=== PATIENT | male | born 1965 | race Caucasian/White ===

== ENCOUNTER 2020-11-08 08:16 | Outpatient (RCR) | payer OTHER, SELFPAY ==
--- NOTE | 2020-11-08 08:59 | PTOPEVAL ---
Thank you for referring Rj Turner to [facility].? The patient is scheduled to be seen for therapy? __3__x/week for 12 visits. Please review, sign, date and return this plan of care SUSIE. I agree with and certify that the following plan of care is medically necessary. Referring Physician Date Admitting Provider: Attending Provider: Ramy Newsome, Referring Provider: *PT Outpatient Evaluation Start: 11/08/20 08:01 Freq: Status: Active Protocol: Document 11/08/20 08:12 AVELINO (Rec: 11/08/20 08:59 AVELINO [email or web address]) Therapy Assessment Status Assessment Status Assessment Status Evaluation Evaluation Information Problem Diagnosis left TKA Onset 10-25-20 Subjective Information Pt. reports that he underwent Query Text:As Reported By Patient/ left TKA on 10/25/20. He Family reports that he has been participating in for therapy. He states that he has been doing a daily exerise program. He reports that he is having trouble with sleep because he is avoiding sleeping on his side. He reports that he is currently using a cane. He has not returned to driving. 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 He reports that his goal is to return to walking normal. Pain Assessment Timing of Pain Assessment Timing of Pain Assessment Pre-Treatment Pain Scale Pain Scale Used Numeric (1 - 10) Self Report Pain Assessment Left Knee(s) Reported Pain Level 1 Lowest Pain Intensity 1 Greatest Pain Intensity 4 Pain Aggravating Factors Exercise/Activity,Walking Pain Score Pain Score 1: Self Report Interventions Used Interventions Used By Clinicians Activity or ADL's,Compression Pump,Exercise Lower Extremity Range of Motion General Lower Extremity Range of Motion Gross Lower Extremity Range of Motion Pt. presents to the clinic Comments with 2-102 degrees of left knee AROM. Lower Extremity Muscle Strength Testing General Lower Extremity Strength Gross Lower Extremity Strength -left hip flexion 4/5 -left hip abduction 3+/5 -left knee flexion 3+/5 -left knee extension 3+/5 -left ankle dorsiflexion 5/5 Extremity Circumference Assess
--- NOTE | 2020-11-09 10:20 | PCPTNOTE ---
On 11/09/20, the student, [ Delfina Duvall, [facility] provided care and completed [employer] documentation on this patient. I have reviewed the student's documentation and agree with the findings.
--- NOTE | 2020-11-23 13:10 | PCPTNOTE ---
Mr. Turner has been seen for a total of 8 outpatient treatments with 100% compliancy. Pt is 4 weeks post op with left range of motion of 2-115 degrees this date. Patient has been instructed in HEP along with performing therapeutic ex of -heel prop x 10 minutes -scar massage x 5 min -squats x 20 -6 step ups x 15 on left -heel slides x 20 with 10 second with belt -PROM knee flex x 5 min -SAQ x 20 -quad sets x 20 holds -SLR 1x20 -gastroc incline board x 2 min -heel/toe raises x 20 -standing hip abd 2x10 ea casa -NuStep level 4 for knee flexion x 10 minutes -Vasopneumatic compression post treatment x 15 min for pain and swelling post treatment. Thank you for this referral. Any questions or concerns please contact our office. Gabrielle Salinas MANAGER LEADERSHIP DEVELOPMENT
--- NOTE | 2020-12-02 09:08 | PTOPEVAL ---
Thank you for referring Rj Turner to [facility].? The patient is scheduled to be seen for therapy? ____x/week for ___ weeks. Please review, sign, date and return this plan of care SUSIE. I agree with and certify that the following plan of care is medically necessary. Referring Physician Date Admitting Provider: Attending Provider: Ramy Newsome, Referring Provider: *PT Outpatient Evaluation Start: 11/08/20 08:01 Freq: Status: Active Protocol: Document 12/02/20 08:11 [facility] (Rec: 12/02/20 09:07 [facility] [email or web address]) Evaluation Information Problem Diagnosis left TKA Onset 10-25-20 Additional Evaluation Detail LEFS = 20% functionally declined Subjective Information patient reports he feels good Query Text:As Reported By Patient/ this date. he reports he was Family a bit tight after his last therapy visit. he reports he is loosened back up now. patient reports he is confident with his exercises, and ready to DC skilled PT this date. Pain Assessment Timing of Pain Assessment Timing of Pain Assessment Assessment Pain Scale Pain Scale Used Numeric (1 - 10) Self Report Pain Assessment Left Knee(s) Reported Pain Level 0 Greatest Pain Intensity 3 Pain Score Pain Score 0: Self Report Interventions Used Interventions Used By Clinicians Activity or ADL's,Compression Pump,Education,Exercise Lower Extremity Range of Motion General Lower Extremity Range of Motion Gross Lower Extremity Range of Motion arom L knee extension = 0 Comments degrees arom L knee flexion = 125 degrees Lower Extremity Muscle Strength Testing General Lower Extremity Strength Gross Lower Extremity Strength L hip flex 4+/5 L knee strength 5/5 overall Muscle Length Testing Muscle Length Testing Left Hamstring Length 45 Query Text:(90 - 90 Position) Gait Assessment Gait Assessment Additional Ambulation Comments patient ambulates with mild antalgia favoring the L LE still. however, he reports he did walk with a limp for nearly 8 years prior to his surgery. he ambulates with step through bilateral mechanics and his gait improves with further ambulation distance domenic
== END 2020-12-02 11:24 | disposition home or self-care (01) ==
LOC: CHSPT 08:16
PROVIDERS: Visit Provider Orthopaedic Surgery Adult Reconstructive Orthopaedic Surgery
DX: Z96.652 Presence of left artificial knee joint (principal); G89.29 Other chronic pain
CPT/HCPCS: 97016; 97110; 97161; 97530

== ENCOUNTER 2022-03-20 07:52 | Outpatient (RCR) | payer OTHER, SELFPAY ==
--- NOTE | 2022-03-20 07:56 | PTOPEVAL1 ---
Assessment and note entered by Ivis Hernandez DPT Evaluation Information Assessment Status Evaluation Diagnosis L knee pain Onset 10/25/2020 Subjective Information Pt reports that he had a knee replacement for his L knee on 10/25/2020 due to being bone on bone in his left knee. Pt reports that his knee is better than right after surgery, but is still painful. He has the most difficulty with lateral movements, bending, and as the day goes on. Pt reports some pain with sleeping due to sleeping with his knee bent. Pt came into our clinic post-op last year and was doing well but after returning to work he feels that his pain has plateaued and returned since working more. He got an Xray performed yesterday and his MD feels knee is still structurally sound but just might have decreased strength. He doesn't note much swelling any more. He denies numbness or tingling but reports some decreased sensation. Pt reports pain along his joint line and posterior knee. Pain waxes and wanes especially with activity. He reports that his pain does not keep him from doing things he likes to do, but that he is more careful. He does not have a follow-up scheduled with his MD, but is supposed to call after a round of PT. Reported Pain Level Pain Score 5: Self Report Assessment PT Clinical Summary Pt presents to physical therapy with L knee pain and demonstrates decreased strength, decreased ROM and mobility, and joint edema. His current deficits make it more challenging for him to bend his knee and walk as needed for his job and recreational activities. He will benefit from skilled PT to facilitate symptom relief, improve the aforementioned impairments, and return to functional and recreational activities. Plan of Care Interventions Electrical Stimulation,Gait Training,Hot Pack/Cold Pack,Manual Therapy,Neuro Re-education,Patient/ Caregiver Educati,Therapeutic Activities, Therapeutic Exercise PT Services Indicated Yes Treatment Frequency and 2x week for 4 weeks Duration These treatments will address the objective and functional deficits as defined above. The patient will be advanced safely and appropriately in order for the patient to progress towards his/her prior level of function. Additional exercises will be introduced and as well as a comprehensive home exercise program upon discharge, if needed, ?to ensure carryover of functional gains achieved in the clinic. This
--- NOTE | 2022-04-12 08:53 | PTOPDC ---
Assessment and note entered by Ivis Hernandez DPT Evaluation Information Assessment Status Discharge Diagnosis L knee pain Onset 10/25/2020 Subjective Information Pt reports that knee pain is low but still present . His pain is definitely lower when he does have pain, but he continues to notice it when making lateral motions. He notes it still gets sore when bending and kneeling on it, especially for long periods of time. Reported Pain Level Pain Score 2: Self Report Assessment PT Clinical Summary Pt presents to PT with significant improvements in pain, strength, ROM, swelling, and gait pattern since his initial evaluation. While he still demonstrates some discomfort with lateral motions and with continuous bending, he was provided with an updated HEP to further improve these symptoms as he prepares to return to work next week. He is to be discharged from skilled PT at this time to his independent HEP and is to call or follow-up as needed for his POC going forward. Plan of Care PT Services Indicated No
== END 2022-04-12 11:12 | disposition home or self-care (01) ==
LOC: CHSPT 07:52
PROVIDERS: Visit Provider Orthopaedic Surgery Adult Reconstructive Orthopaedic Surgery
DX: M25.562 Pain in left knee (principal)
CPT/HCPCS: 97110; 97112; 97140; 97161; 97530

== ENCOUNTER 2024-07-23 11:49 | Outpatient (CLI) | payer OTHER, SELFPAY ==
--- OUTSIDE RECORDS SUMMARY | 2024-07-23 13:37 | XMS_ITS | Clinical Summary ---
Author Organization [facility] Address [address] [place] [address] Care Team Providers Care Oscillograph Technician Name Role Phone Bartolome Grimes MD Unavailable [phone] Eryn Rowe NP Primary Care Provider [phone] Allergies No known active allergies Medications pravastatin (PRAVACHOL) 20 MG tabletIndicatio ns:Hyperlipidem ia, mixed Take 1 tablet (20 mg total) by mouth nightly at bedtime. 90 tablet 3 09/27/19 24 Active metoprolol succinate ER (TOPROL-XL) 25 MG 24 hr tabletIndicatio ns:SVT (supraventricul ar tachycardia) (HHS/HCC),Prima ry hypertension Take 1 tablet (25 mg total) by mouth daily. 90 tablet 3 09/27/19 24 Active Additional Information Patient not taking.Reported on 07/14/2024 ketoconazole (NIZORAL) 2 % cream Apply topically daily. 07/03/19 24 025 Discontinued( Pt. elected to discontinue med) terbinafine (LAMISIL) 250 MG tabletIndicatio ns:Onychomycosi s Take 1 tablet (250 mg total) by mouth daily. 30 tablet 02/19/20 24 025 Discontinued( Pt. elected to discontinue med) Active Problems Problem Noted Date Diagnosed Date Chronic pain of left knee 05/17/2021 Presence of left artificial knee joint Overview (05/17/2021): Replacement by Dr. Ramy Newsome. Risk factors for obstructive sleep apnea 021 HTN (hypertension) 10/18/2020 Benign prostatic hyperplasia with urinary hesita ncy 06/30/2020 Gastroesophageal reflux disease without esophagi tis 04/07/2019 BMI 27.0-27.9,adult 04/07/2019 Medication management 04/07/2019 Schatzki's ring of distal esophagus 08/29/2018 Overview (08/29/2018): Small ring dilated with #50 F Fox dilator on by Dr. Walt Cox Hyperlipidemia, mixed 07/10/2018 SVT (supraventricular tachycardia) ([facility]/HCC) 04/2018 Snoring 02/14/2016 Resolved Problems Problem Noted Date Diagnosed Date Resolved Date Primary osteoarthritis of left knee 09/19/2020 05/17/2021 Overview (05/17/2021): Added automatically from request for surgery [id number] Fatigue 07/22/2017 06/18/2018 Excessive daytime sleepiness 02/24/2016 06/18/2018 Witnessed apneic spells 02/24/2016 02/0 10/2018 Chest pain in adult 04/07/20 19 Encounters Date Type Department Care Team Description 07/23/2024 MyChart Message Enc [facility] Family & Internal [address] [address] Eryn Rowe NP FMLA 07/14/2024 3:00 PM PHYSICIAN INTERNIST Office Visit [facility] Family & Internal Medicine [address] [address] Eryn Rowe NP Forms (Pt requesting time off work,needing FMLA paperwork filled out ) 07/14/2024 Travel 07/10/2024 Scan [employer] [facility] SRVCS Scanned, [facility] 04/30/2024 10:40 AM PHYSICIAN INTERNIST Office Visit [facility] Family & Internal [address] [address] Ly Sommer, [place] Nausea (Lightheaded , hot flashes-dizziness has subsided-stomach is hurting-indigestion- started this a.m) 04/30/2024 Travel from Last 3 Months Immunizations Name Administration Dates Next Due Influenza Adult (Generic) 03/17/2023 PFIZER COVID-19 (ORIGINAL FO RMULATION, PURPLE CAP) mRNA, LNP-S, PF, 30 MCG/0.3 ML DOSE 08/02/2020,07/12/2020 Tdap (Adacel) 03/28/2023 Family History Medical History Relation Comments No hx of CAD Other Relation Status Comments Brother Alive Father Alive Maternal Grandfather Maternal Grandmother (Age 78) Mother Alive Other Alive Paternal Grandfather (Age 66) Paternal Grandmother (Age 90) Social History Tobacco Use Types Packs/Day Years Used Date Smoking Tobacco: Never Passive Smoke Exposure: Never Smokeless Tobacco: Former Chew Quit: 10/14/2013 Alcohol Use Standard Drinks/Week Comments Yes 6.7 (1 standard drink = 0.6 oz p ure alcohol) weekly PHQ-2 Answer Date Recorded Patient Health Questionnaire-2 Score 0 07/14/2024 Education Answer Date Recorded What is the highest level of school you have completed or the highest degree you have received? High school graduate 06/17/2018 Sex and Gender Information Value Date Recorded Sex Assigned at Male 09/01/2018 1:46 PM CDT Legal Sex Male 7:25 PM CDT Gender Identity Male 09/01/2018 1:46 PM CDT Sexual Orientation Not on file Occupation Industry Job Start Date Job End Date Not on file Not on file Not on file Not on file Last Filed Vital Signs Vital Sign Reading Time Taken Comments Blood Pressure 134/78 07/14/2024 3:42 PM PHYSICIAN INTERNIST Pulse 64 07/14/2024 3:05 PM PHYSICIAN INTERNIST Temperature 36.7 C (98 F) 07/14/2024 3:05 PM PHYSICIAN INTERNIST Respiratory Rate 16 07/14/2024 3:05 PM PHYSICIAN INTERNIST Oxygen Saturation 99% 07/14/2024 3:05 PM PHYSICIAN INTERNIST Inhaled Oxygen Concentration - - Weight 98 kg (216 lb) 07/14/2024 3:05 PM PHYSICIAN INTERNIST Height 185.4 cm (6' 1 ) 07/14/2024 3:05 PM PHYSICIAN INTERNIST Body Mass Index 28.5 07/14/2024 3:05 PM PHYSICIAN INTERNIST Plan of Treatment Health Maintenance Due Date Last Done Comments Colorectal Cancer Screening Colonoscopy (10 Years) 1963 Annual Physical 10/28/1966 COVID-19 Vaccine ( season) 2024 03/17/2023, 02/12/2022, 04/14/2021, Additional history exists Influenza Adult (#1) 2024 03/17/2023 Zoster Vaccines (1 of 2) 11/19/2024 Pos tponed from 10/28/2013 (Patient Refused) DTaP, Tdap and Td Vaccines (2 - Td or Tdap) 03/28/2033 03/28/2023 RSV Immunization or 60+ Years (1 - 1-dose 75+ series) 10/28/2038 Hepatitis C 11/19/2053 Postponed from 10/28/1981 (Patient Refused) PHQ-2 (Physician Slater) Completed 07/14/2024 Meningococcal B Vaccine Aged Out No l onger eligible based on patient's age to complete this topic Meningococcal Vaccine Aged Out No natty jonny eligible based on patient's age to complete this topic Pneumococcal Vaccine: Pediatrics (0 to 5 Years) and At-Risk Patients (6 to 64 Years) Aged Out No longer eligible based on patient's age to complete this topic RSV Immunizations Under 20 Months Aged Out No longer eligible based on patient's age to complete this topic Insurance Care Teams Oscillograph Technician Relationship Specialty [place] [address] [facility] [address] [place] [address] PCP - General Nurse Practitioner Family 08/22/21 Bartolome Grimes MD Three [facility]. [address] [address] Delmis Bottling Line Attendant CARDIOVASCULAR DISEASE 07/12/17
--- OUTSIDE RECORDS SUMMARY | 2024-07-23 13:37 | XMS_ITS | Referral Summary ---
Author Organization [facility] Address [address] [place] [address] Care Team Providers Care Grinder Lap Name Role Phone Eryn Rowe NP Primary Care Provide r Allergies No known active allergies Medications metoprolol XL (TOPROL-XL) 25 mg extended release tablet Take 1 tablet (25 mg total) by mouth nightly 1 Active pravastatin (PRAVACHOL) 20 mg tablet Take 1 tablet (20 mg total) by mouth nightly 1 Active methylPREDNISolo ne (MEDROL DOSEPACK) 4 mg Dosepack TAKE BY MOUTH DIRECTED ON INSIDE OF PACKAGE 3 Active clobetasoL (TEMOVATE) 0.05 % cream Apply topically 2 (two) times a day 4 Active ketoconazole (NIZORAL) 2 % cream APPLY CREAM TOPICALLY TWICE DAILY TO FEET AND RIGHT HAND 4 Active meloxicam (MOBIC) 15 mg tabletIndication s:Left knee pain, unspecified chronicity Take 1 tablet (15 mg total) by mouth daily 30 tablet 2 4 Active Active Problems Problem Noted Date Diagnosed Date HTN (hypertension) 10/18/2020 HLD (hyperlipidemia) 10/18/2020 Risk factors for obstructive sleep apnea 021 Primary osteoarthritis of left knee 09/19/2020 Overview (09/19/2020): Added automatically from request for surgery [id number] Social History Tobacco Use Types Packs/Day Years Used Date Smoking Tobacco: Never Smokeless Tobacco: Former Chew Quit: 10/14/2005 AUDIT-C Answer Date Recorded Q1: How often do you have a drink containing alc ohol? 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 Gender Identity Not on file Sexual Orientation Not on file Last Filed Vital Signs Vital Sign Reading Time Taken Comments Blood Pressure 118/68 10/25/2020 11:20 AM CDT Pulse 65 10/25/2020 11:20 AM CDT Temperature 36.4 C (97.5 F) 10/25/2020 9:27 AM CDT Respiratory Rate 24 10/25/2020 11:20 AM CDT Oxygen Saturation 96% 10/25/2020 11:20 AM CDT Inhaled Oxygen Concentration - - Weight 97.1 kg (214 lb) 12/11/2021 2:38 PM CDT Height 181.6 cm (5' 11.5 ) 12/11/2021 2:38 PM CD T Body Mass Index 29.43 12/11/2021 2:38 PM CDT Plan of Treatment Not on file Medical Devices Implanted Type Area Supervisor Steffen House Device Identifier Shelf Expiration Date Model / Serial / Lot [employer] [id number] Attune Cruciate Retain Cementless Knee Left 8 Component Femoral - [id number] Implanted:Qty: 1 on 10/25/2020 by Ramy Newsome MD at [facility] [employer] [id number] / / [employer] [id number] Attune 8mm Cruciate Retaining Rotate Platform Knee 8 Insert - [id number] Implanted:Qty: 1 on 10/25/2020 by Ramy Newsome MD at [facility] [employer] [id number] / / [employer] [id number] Attune Cementless Rotate Platform Knee 9 Baseplate Tibial - [id number] Implanted:Qty: 1 on 10/25/2020 by Ramy Newsome MD at [facility] Orthopaedics [facility] [id number] / / Insurance [facility] CHO[facility] PLUS [facility]O Address: [address] [address] [place] [address] [facility] CHOICE PLUS [facility] HMO/PPO Address: [address] [address] [place] [address] [facility] CHOICE PLUS [facility] H[facility]/PPO Address: [address] [address] [place] [address] Advance Directives For more information, please contact: [phone] * Full Code (Latest Code Status on File) Date Activated Date Inactivated Comments 10/25/2020 9:28 AM 10/25/2020 7:05 PM Care Teams Grinder Lap Relationship Specialty [place] [address] [place] [address] PCP - General Nurse Practitioner 09/25/23
--- OUTSIDE RECORDS SUMMARY | 2024-07-23 13:37 | XMS_ITS | Encounter Summary ---
Author Organization [facility] Address [address] [place] [address] Care Team Providers Care Forestry Hunter Name Role Phone Bartolome Grimes MD Unavailable [phone] Eryn Rowe NP Primary Care Provider Encounter Details Date Type Department Care Team (Late st Contact Info) Description 07/23/2024 AVdirect Message Enc [facility] Family & Internal Medicine [facility] [id number] [place] [address] E[place] Row[place] [id number] [place] [address] [facility] [place] [address] FMLA Social History Tobacco Use Types Packs/Day Years [...] file Not on file Not on file documented as of this encounter Plan of Treatment Not on file documented as of this encounter Visit Diagnoses Not on filedocumented in this encounter Additional Health Concerns Assessment Noted Time PHQ-9 Depression Total Score: 2 07/15/19 25 4:03 PM ANTIQUE CLOCKS REPAIRER documented as of this encounter Care Teams Forestry Hunter Relationship Specialty Start Date End Date Eryn Rowe, ROOM MANAGER [address] [facility] [address] [place] [address] PCP - General Nurse Practitioner Family 08/22/21 Bartolome Grimes MD Three [facility]. [address] [place] [address] Lyman Upper And Bottom Lacer Hand CARDIOVASCULAR DISEASE 07/12/17 documented as of this encounter
--- OUTSIDE RECORDS SUMMARY | 2024-07-23 13:37 | XMS_ITS | Clinical Summary ---
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 Gender Identity Not on file Sexual Orientation Not on file Obstetrics History Last Filed Vital Signs Vital Sign Reading [...] 12/11/2021 2:38 PM CDT Plan of Treatment Health Maintenance Due Date Last Done Comments Colon Cancer Screening-Colonoscopy 1965 Depression Screening 1965 Hepatitis C Screening 1965 Prostate Cancer Screening-PSA 1963 Hepatitis B Screening 10/28/1981 Regular Well Visit/Exam 18-64 10/28/1981 Zoster Vaccine (1 of 2) 10/28/2013 Covid-19 Vaccine (2023-2 5 season) 2024 08/02/2020, 07/12/2020 Influenza Vaccine (#1) 2024 DTaP/Tdap/Td Vaccine (2 - Td or Tdap) 03/28/2033 03/28/2023 Pneumococcal vaccine <65 Aged Out No longer eligible based on patient's age to complete this topic Medical Devices Implanted Type Area Client Advocate Device Identifier Shelf Expiration Date Model / Serial / Lot [employer] [id number] Attune Cruciate Retain Cementless Knee Left 8 Component Femoral - [id number] Implanted:Qty: 1 on 10/25/2020 by Ramy eNwsome MD at [facility] [employer] [id number] / / [employer] [id number] Attune 8mm Cruciate Retaining Rotate Platform Knee 8 Insert - [id number] Implanted:Qty: 1 on 10/25/2020 by Ramy Newsome MD at [facility] [employer] [id number] / / [employer] [id number] Attune Cementless Rotate Platform Knee 9 Baseplate Tibial - [id number] Implanted:Qty: 1 on 10/25/2020 by Ramy Newsome MD at [facility] [employer] [id number] / / Insurance [employer] [address] [facility] CHOICE PLUS [place] [id number] [facility] CHOICE PLUS Advance Directives For more information, please contact: [phone] * Full Code (Latest Code Status on File) Date Activated Date Inactivated Comments 10/25/2020 9:28 AM 10/25/2020 7:05 PM Care Teams Policy Services Representative Relationship Specialty [place] [address] [address] PCP - General Nurse Practitioner 09/25/23
--- OUTSIDE RECORDS SUMMARY | 2024-07-23 13:37 | XMS_ITS | Encounter Summary ---
Author Organization [facility] Address [address] [place] [address] Care Team Providers Care Dirt Contractor Name Role Phone Bartolome Grimes MD Unavailable [phone] Eryn Rowe NP Primary Care Provider Reason for Visit * Reason Comments Forms Pt requesting time o ff work,needing FMLA paperwork filled out Encounter Details Date Type Department Care Team (Late st Contact Info) Description 07/14/2024 3:00 PM COLLEGE OR UNIVERSITY BUSINESS MANAGER Office Visit [facility] Family [facility] Internal Medicine [address] [address] Eryn Rowe NP [address] [place] [address] Forms (Pt requesting time off work,needing FMLA paperwork filled out ) Social History Tobacco Use Types Packs/Day Years [...] on file documented as of this encounter Last Filed Vital Signs Vital Sign Reading Time Taken Comments Blood Pressure 134/78 07/14/2024 3:42 PM COLLEGE OR UNIVERSITY BUSINESS MANAGER Pulse 64 07/14/2024 3:05 PM COLLEGE OR UNIVERSITY BUSINESS MANAGER Temperature 36.7 C (98 F) 07/14/2024 3:05 PM COLLEGE OR UNIVERSITY BUSINESS MANAGER Respiratory Rate 16 07/14/2024 3:05 PM COLLEGE OR UNIVERSITY BUSINESS MANAGER Oxygen Saturation 99% 07/14/2024 3:05 PM COLLEGE OR UNIVERSITY BUSINESS MANAGER Inhaled Oxygen Concentration - - Weight 98 kg (216 lb) 07/14/2024 3:05 PM COLLEGE OR UNIVERSITY BUSINESS MANAGER Height 185.4 cm (6' 1 ) 07/14/2024 3:05 PM COLLEGE OR UNIVERSITY BUSINESS MANAGER Body Mass Index 28.5 07/14/2024 3:05 PM COLLEGE OR UNIVERSITY BUSINESS MANAGER documented in this encounter Progress Notes * Eryn Rowe, MUD TRUCKER - 07/14/2024 3:00 PM CST Reason for Visit: Forms (Pt requesting time off work,needing [place] paperwork filled out ) History of Present Illness: The patient experienced a dizzy episode two months ago, occurring in the middle of the night. The dizziness was severe enough to cause nausea, but it resolved by the morning. The patient noted feeling dizzy to the point of nausea but reported that the symptoms resolved quickly. Prior to coming to the clinic, the patient checked their blood pressure at home, which appeared fine. The patient visited the clinic as a precautionary measure. During the visit, the clinician considered the possibility of an inner ear problem but did not find definitive evidence of such. The patient has not experienced another episode since. The patient has a history of heart rate and blood pressure issues, and previously stopped taking metoprolol after experiencing low heart rate episodes. Blood pressure readingsat home have been around 135/79 to 140/82. The patient mentioned a past episode of dizziness potentially related to the flu but not recently. The clinician suggested monitoring symptoms and blood pressure at home in case of recurrence. ROS: Review of Systems Constitutional: Negative. HENT: Negative. Respiratory: Negative. Cardiovascular: Negative. Musculoskeletal: Positive for joint pain (chronic left knee pain). Neurological: Negative. All other systems reviewed and are negative. Medications: Current Outpatient Medications: pravastatin (PRAVACHOL) 20 MG tablet, Take 1 tablet (20 mg total) by mouth nightly at bedtime., Disp: 90 tablet, Rfl: 3 metoprolol succinate ER (TOPROL-XL) 25 MG 24 hr tablet, Take 1 tablet (25 mg total) by mouth daily.(Patient not taking: Reported on 07/14/2024), Disp: 90 tablet, Rfl: 3 Review of patient's allergies indicates: No Known Allergies Past Medical History: Diagnosis Date Chest pain in adult Hypertension Primary osteoarthritis of left knee 09/19/2020 Added automatically from request for surgery [id number] Witnessed apneic spells 02/24/2016 Past Surgical History: Procedure Laterality Date ELBOW SURGERY ELBOW SURGERY Right KNEE SURGERY KNEE SURGERY Left 3 times REPLACEMENT TOTAL KNEE Left 10/25/2020 SHOULDER SURGERY SHOULDER SURGERY Left Social History Tobacco Use Smoking status: Never Passive exposure: Never Smokeless tobacco: Former Types: Chew Quit date: 10/14/2013 Vaping Use Vaping status: Never Used Substance Use Topics Alcohol use: Yes Alcohol/week: 6.7 standard drinks of alcohol Types: 4 Cans of beer per week Comment: weekly Drug use: No Family History Problem Relation Name Age of Onset Other (No hx of CAD) Other Family Status Relation Name Status Other Alive Mother Alive, age 78y Father Alive, age 82y Brother Alive, age 55y MGM at age 78 MGF PGM at age 90 PGF at age 66 No partnership data on file Physical Exam Vitals and nursing note reviewed. Constitutional: Appearance: Normal appearance. HENT: Head: Normocephalic. Right Ear: External ear normal. Nose: Nose normal. Mouth/Throat: Mucous membranes are moist. Eyes: Pupils: Pupils are equal, round, and reactive to light. Cardiovascular: Rate and Rhythm: Normal rate and regular rhythm. Pulses: Normal pulses. Heart sounds: Normal heart sounds. No murmur heard. Pulmonary: Effort: Pulmonary effort is normal. Breath sounds: Normal breath sounds. Abdominal: Palpations: Abdomen is soft. Musculoskeletal: Right knee: Normal. Left knee: Swelling present. Decreased range of motion. Right lower leg: No edema. Left lower leg: No edema. Skin: General: Skin is warm. Capillary Refill: Capillary refill takes less than 2 seconds. Neurological: General: No focal deficit present. Mental Status: He is alert and oriented to person, place, and time. Psychiatric: Mood and Affect: Mood normal. Behavior: Behavior normal. Thought Content: Thought content normal. Judgment: Judgment normal. Filed Vitals: 07/14/24 1505 07/14/24 1511 07/14/24 1542 BP: (!) 152/87 (!) 148/82 134/78 Pulse: 64 Resp: 16 Temp: 98 ??F (36.7 ??C) TempSrc: Temporal SpO2: 99% Weight: 98 kg (216 lb) Height: 1.854 m (6' 1 ) Assessment Encounter Diagnose(s) ICD-10-CM SNOMED CT(R) 1. Screening for malignant neoplasm of prostate Z12.5 PATIENT ENCOUNTER STATUS PROSTATE SPECIFIC ANTIGEN,SCREENING PROSTATE SPECIFIC ANTIGEN,SCREENING 2. Hyperlipidemia, mixed E78.2 MIXED HYPERLIPIDEMIA LIPID PANEL CBC W/DIFF AUTOMATED COMPREHENSIVE METABOLIC PANEL LIPID PANEL CBC W/DIFF AUTOMATED COMPREHENSIVE METABOLIC PANEL 3. Prediabetes R73.03 PREDIABETES HEMOGLOBIN, GLYCOSYLATED HEMOGLOBIN, GLYCOSYLATED 4. Low testosterone in male R79.89 TESTOSTERONE LEVEL BELOW REFERENCE RANGE TESTOSTERONE, FREE & TOTAL TESTOSTERONE, FREE & TOTAL Recommendations and Plan: 1. Episodic vertigo: The patient's symptoms of dizziness and nausea suggest an episode of vertigo, potentially triggered by an underlying middle ear issue or sinus-related problem. The absence of recurrence and resolution of the initial episode supports this diagnosis. 2. Hypertension: Home blood pressure readings indicate elevated levels. The patient's discontinuation of metoprolol may be contributing to this pattern. Further monitoring and possible re-initiation of treatment may be necessary if high readings persist. 3. Pre-diabetes: With an A1c of 5.8%, the patient is at risk for developing diabetes. Lifestyle modifications, including diet and exercise, will be essential to manage blood g lucose levels. PLAN: Treatment: - Continued home monitoring of blood pressure and symptoms Tests: -Planned fasting blood work in October to re-evaluate A1c, liver enzymes, and testosterone levels Patient Education: - Advised the patient to monitor blood pressure at home, especially during any episodes of dizziness - Discussed the importance of lifestyle modifications to manage blood sugar levels Follow-Up: - Recommended follow-up in six months for reassessment of symptoms and lab results Disposition: - Patient to contact the clinic if symptoms recur or if home blood pressure readings remain consistently elevated 1. Screening for malignant neoplasm of prostate (Primary) - PROSTATE SPECIFIC ANTIGEN,SCREENING; Future - PROSTATE SPECIFIC ANTIGEN,SCREENING 2. Hyperlipidemia, mixed - LIPID PANEL; Future - CBC W/DIFF AUTOMATED; Future - COMPREHENSIVE METABOLIC PANEL; Future - LIPID PANEL - CBC W/DIFF AUTOMATED - COMPREHENSIVE METABOLIC PANEL 3. Prediabetes - HEMOGLOBIN, GLYCOSYLATED; Future - HEMOGLOBIN, GLYCOSYLATED 4. Low testosterone in male - TESTOSTERONE, FREE & TOTAL; Future - TESTOSTERONE, FREE & TOTAL Follow up in 6 months. Return to clinic with new, persistent, or worsening symptoms. Rj Turner is in agreement to and verbalized understanding of treatment plan with no further questions at this time. Eryn Rowe NP 07/19/2024 10:35 PM documented in this encounter Plan of Treatment Scheduled Orders Name Type Priority Associated Diagnoses Orde r Schedule LIPID PANEL Lab Routine Hyperlipidemia, mixed Expected: 07/14/2024, Expires: 07/14/2025 HEMOGLOBIN, GLYCOSYLATED Lab Routine Prediabetes Expected: 07/14/2024, Expires: 07/14/2025 CBC W/DIFF AUTOMATED Lab Today Hyperlipidemia, mixed Expected: 07/14/2024, Expires: 07/14/2025 COMPREHENSIVE METABOLIC PANEL Lab Routine Hyperlipidemia, mixed Expected: 07/14/2024, Expires: 07/14/2025 PROSTATE SPECIFIC ANTIGEN,SCREENING Lab Routine Screening for malignant neoplasm of prostate Expected: 07/14/2024, Expires: 07/14/2025 TESTOSTERONE, FREE & TOTAL Lab Routine Low testosterone in male Expected: 07/14/2024, Expires: 07/14/2025 documented as of this encounter Visit Diagnoses Diagnosis Screening for malignant neoplasm of prostate- Primary Hyperlipidemia, mixed Mixed hyperlipidemia Prediabetes Other abnormal glucose Low testosterone in male documented in this encounter Additional Health Concerns Assessment Noted Time PHQ-9 Depression Total Score: 2 07/15/19 25 4:03 PM COLLEGE OR UNIVERSITY BUSINESS MANAGER documented as of this encounter Care Teams Dirt Contractor Relationship Specialty [place] [address] [place] [address] PCP - General Nurse Practitioner Family 08/22/21 Bartolome Grimes MD [facility]. [facility] [address] [place] [address] [place] [employer] Mixer CARDIOVASCULAR DISEASE 07/12/17 documented as of this encounter
--- OUTSIDE RECORDS SUMMARY | 2024-07-23 13:37 | XMS_ITS | CONTINUITY OF CARE DOCUMENT ---
Author Name gary vega Address Unknown Organization [facility] Address [address] [address] [place] [address] Phone [phone] Care Team Providers Care Marketing Traffic Coordinator Name Role Phone Anuj JETER, Ld Unavailable INSURANCE PROVIDERS Payer name Policy type / Coverage type Sarah red constitution party ID [employer] Workers' compensation he alth claim [id number]
--- OUTSIDE RECORDS SUMMARY | 2024-07-23 13:37 | XMS_ITS | Encounter Summary ---
Author Organization [facility] Address [address] [place] [address] Care Team Providers Care Legal Summer Intern Name Role Phone Bartolome Grimes MD Unavailable [phone] Coby Joshua Primary Care Provider Unava David Bedolla MD Primary Care Provider [phone] Eryn Rowe NP Primary Care Provider [phone] Encounter Details Date Type Department Care Team (Late st Contact Info) Description 09/04/2017 [facility] at [address] [address] Miguelangel Calabrese MA Social History Tobacco Use Types Packs/Day Years Used Date Smoking Tobacco: Never Smokeless Tobacco: Former Alcohol Use Standard Drinks/Week Comments Yes 6.7 (1 standard drink = 0.6 oz p ure alcohol) Sex and Gender Information Value Date Recorded Sex Assigned at Male 09/01/2018 1:46 PM CDT Legal Sex Male 7:25 PM CDT Gender Identity Male 09/01/2018 1:46 PM CDT Sexual Orientation Not on file documented as of this encounter Plan of Treatment Not on file documented as of this encounter Procedures Procedure Name Priority Date/Time Associated Diagnosis Comments CBC (OUTSIDE LAB) Routine 07/11/2017 COMPREHENSIVE METABOLIC PANEL Routine 07/11/2017 THYROID STIM HORMONE TSH Routine 07/11/2017 documented in this encounter Results * THYROID STIM HORMONE, TSH (07/11/2017) TSH 1.44 07/11/2017 [facility] LABORATORY Final Result * COMPREHENSIVE METABOLIC PANEL (07/11/2017) SODIUM S/P/B 144 POTASSIUM S/P/B 4.1 CO2 26 CHLORIDE S/P/B 106 GLUCOSE 109 mg/dL CALCIUM S/P/B 10.3 BUN 17 CREATININE S/P/B 0.85 0.7 - 1.3 EGFR NON-AFR. AMER. >60 <=90 ALKALINE PHOSPHATASE S/P/B 65 ALT 32 AST 25 BILIRUBIN TOTAL S/P/B 0.7 ALBUMIN S/P/B 4.6 3.5 - 5.0 TOTAL PROTEIN S/P/B 7.8 07/11/2017 [facility]ORAT[facility] Final Result * CBC (OUTSIDE LAB) (07/11/2017) WBC 7.8 HGB 17.1 HCT 50.2 PLT 266 07/11/2017 us Doc [facility] Abstract LAB-OUTSIDE/ABSTRACTED Final Result documented in this encounter Visit Diagnoses Not on filedocumented in this encounter Additional Health Concerns Infection Onset Date Last Indicated Resolved Time COVID-19 Rule Out 01/04/2020 01/05/2020 01/07/2020 10:00 AM CDT documented as of this encounter Care Teams Legal Summer Intern Relationship Specialty Start Date End Date Coby Joshua APNP [address] [facility] [address] [place] [address] PCP - General JOINT CREASER 07/11/17 06/04/18 David Linares MD [address] [facility] [address] [place] [address] PCP - General INTERNAL MEDICINE 06/05/18 08/21/21 [place] [address] [facility] [address] [place] [address] PCP - General Nurse Practitioner Family 08/22/21 Bartolome Grimes MD [facility]. [address] [address] [place] S[employer] Press Operator CARDIOVASCULAR DISEASE 07/12/17 documented as of this encounter
== END 2024-07-23 11:50 | disposition home or self-care (01) ==
LOC: CHSLAB 11:51
PROVIDERS: PCP Specialist; Visit Provider Specialist
DX: L91.8 Other hypertrophic disorders of the skin (principal)
CPT/HCPCS: 88305